=== PATIENT | female | born 1995 | race Two or more races ===

== ENCOUNTER 2018-07-10 10:45 | Inpatient (IN) | payer MEDICAID ==
[~2018-07-10] VITALS: Ht 154.9 cm; Wt 68.9 kg
[2018-07-10] MEDS ORDERED: LACT. RINGERS/OXYTOCIN 20UNITS 1,000 ML IV SCH ×2 (11:35→13:14)
[2018-07-10] MEDS ORDERED: LACTATED RINGER'S 1,000 ML IV SCH (11:35)
[2018-07-10] MEDS ORDERED: NALBUPHINE HCL 10 MG/1ml INJECTION IV PRN (11:45)
[2018-07-10] MEDS ORDERED: WITCH HAZEL-GLYCERIN PAD TOP PRN (11:45)
[2018-07-10] MEDS ORDERED: METHYLERGONOVINE MALEATE 0.2 MG/ML AMP IM PRN (11:45)
[2018-07-10] MEDS ORDERED: LIDOCAINE 2% (LOCAL ANESTH.) PF 5ml SDV ID ONE (11:45)
[2018-07-10] MEDS ORDERED: PHISODERM TOP SOLN 240ML BTL TOP PRN (11:45)
[2018-07-10] MEDS ORDERED: DERMOPLAST 60ML BOTTLE TOP PRN (11:45)
[2018-07-10] MEDS: LACTATED RINGER'S 1,000 ML IV SCH ×2 (12:15→16:15)
[2018-07-10 12:19] LABS: Basophils # (auto) 0 uL; Basophils % (auto) 0.4 % (0.0-2.0); Eosinophils # (auto) 0.1 uL; Eosinophils % (auto) 0.9 % (0.0-7.0); Hematocrit 29.8 % (36.0-46.0); Hemoglobin 9.9 g/dL (12.2-16.2); Lymphocytes % (auto) 13.2 % (10.0-50.0); Mean Corpuscular Hemoglobin 27.6 pg (28.0-32.0); Mean Corpuscular Hgb Conc. 33.3 g/dL (32.0-36.0); Mean Corpuscular Volume 82.8 fL (80.0-100.0); Monocytes # (auto) 0.4 uL; Monocytes % (auto) 5.7 % (0.0-12.0); Neutrophils # (auto) 5.9 uL; Neutrophils % (auto) 79.8 % (37.0-80.0); Nucleated Red Blood Cells % 0.1 %; Platelet Count (auto) 197 10^3/uL (140-450); Red Blood Cells 3.59 10^6/uL (4.0-5.20); White Blood Cell 7.4 10^3/uL (4.4-10.8)
[2018-07-10 12:25] LABS: Urine Bacteria NONE SEEN /hpf (None Seen); Urine Blood Negative /uL (Negative); Urine Specific Gravity 1.011 (1.001-1.035); Urine WBC 2 /hpf (0 - 5)
[2018-07-10 12:38] LABS: INR 0.87 (0.9-1.15); Prothrombin Time 9.4 sec (9.27-12.13)
[2018-07-10 12:41] LABS: Alcohol, Urine < 3.0 mg/dL (0-5); Amphetamine Screen, Urine NEGATIVE (NEGATIVE); Barbiturate Scree,Urine NEGATIVE (NEGATIVE); Benzodiazephine Screen, Urine NEGATIVE (NEGATIVE); Cannabinoid Screen, Urine NEGATIVE (NEGATIVE); Cocaine Screen, Urine NEGATIVE (NEGATIVE); Opiate Scree,Urine NEGATIVE (NEGATIVE); Phencyclidine Screen, Urine NEGATIVE (NEGATIVE)
[2018-07-10 12:42] LABS: Albumin 2.4 g/dL (3.4-5.0); BUN/Creatinine Ratio 11.8; Calcium 8.5 mg/dL (8.5-10.1); Potassium 3.9 mmol/L (3.5-5.1)
[2018-07-10 12:45] LABS: Bilirubin, Total 0.4 mg/dL (0.2-1.0); Total Protein 6.4 g/dL (6.4-8.2)
[2018-07-10] MEDS ORDERED: PREN-153 OR (12:45)
[2018-07-10] MEDS ORDERED: FERR18TA2 PO (12:45)
[2018-07-10] MEDS ORDERED: TERBUTALINE SULFATE 1 MG/ML 1ML VIAL SC ONE (13:15)
[2018-07-10] MEDS ORDERED: PROMETHAZINE HCL 25 MG/ML 1ML ONE (14:38)
[2018-07-10] MEDS ORDERED: LIDOCAINE 2% (LOCAL ANESTH.) PF 5ml SDV ONE (19:52)
[2018-07-10 23:00] VITALS: BP 122/65
[2018-07-10] MEDS: ceFAZolin 1GM/50ML 50 ML IV SCH (23:29)
[2018-07-10] MEDS: ACETAMINOPHEN 325 MG TAB PO PRN (23:48)
[2018-07-11] VITALS (7 sets, daily range): BP systolic 102–115; BP diastolic 63–70
[2018-07-11] MEDS: IBUPROFEN 600 MG TAB PO PRN ×3 (01:16→16:40)
[2018-07-11 05:06] LABS: RPR Non Reactive (Non Reactive)
[2018-07-11] MEDS: ceFAZolin 1GM/50ML 50 ML IV SCH ×4 (05:55→22:35)
[2018-07-11] MEDS: LACTATED RINGER'S 1,000 ML IV SCH (09:50)
[2018-07-11] MEDS ORDERED: DOCUSATE CALCIUM 240 MG CAP PO SCH (10:00)
[2018-07-11] MEDS: DOCUSATE SOD 100 MG CAP PO SCH (10:05)
[2018-07-11] MEDS ORDERED: TETANUS-DIPTH-ACEL PERTUSSIS 0.5ML SYRG IM ONE (13:45)
[2018-07-11] MEDS ORDERED: MEASLES, MUMPS & RUBELLA VAC(MMRII) 0.5ML SC ONE (13:45)
[2018-07-11] MEDS: ACETAMINOPHEN 325 MG TAB PO PRN (22:34)
[2018-07-12 03:30] VITALS: BP 110/64
[2018-07-12] MEDS ORDERED: LIDOCAINE 2% (LOCAL ANESTH.) PF 5ml SDV ONE (04:50)
[2018-07-12] MEDS: ceFAZolin 1GM/50ML 50 ML IV SCH (05:55)
[2018-07-12] MEDS: DOCUSATE SOD 100 MG CAP PO SCH (06:43)
[2018-07-12 06:45] VITALS: BP 114/74
[2018-07-12] MEDS: ACETAMINOPHEN 325 MG TAB PO PRN (08:49)
== END 2018-07-12 09:12 | disposition home or self-care (01) | DRG 560 ==
LOC: LDRP 10:45 → OBSVTOIN 11:25 → LDRP 07-11 00:51 → CENTRAL 07-11 22:18
PROVIDERS: ADMIT Obstetrics & Gynecology; ATTEND Obstetrics & Gynecology
PROC: 10D07Z6 Extraction of Products of Conception, Vacuum, Via Natural or Artificial Opening (ICD-10-PCS; principal; 2018-07-10)
PROC: 0W8NXZZ Division of Female Perineum, External Approach (ICD-10-PCS; 2018-07-10)
PROC: 0UQGXZZ Repair Vagina, External Approach (ICD-10-PCS; 2018-07-10)
DX: O70.0 First degree perineal laceration during delivery (principal); Z37.0 Single live birth; Z3A.39 39 weeks gestation of pregnancy
CPT/HCPCS: 36415; 51702; 59025; 59409; 80053; 80307; 81001; 85025; 85610; 85730; 86592; 86850; 86900; 86901; 87340; 90471; 90715; 96365; 96366; A6257; G0378; J0690; J2001; J2590

== ENCOUNTER 2021-01-19 11:02 | Emergency (ER) | payer MEDICAID ==
[~2021-01-19] VITALS: Ht 154.9 cm; Wt 48.5 kg
[~2021-01-19 11:02] MED LIST: FERR18TA2 PO; PREN1TAB71 OR
[2021-01-19 11:21] VITALS: BP 108/47
[2021-01-19 11:35] LABS: Urine Bacteria NONE SEEN /hpf (None Seen); Urine Blood 3+ /uL (Negative); Urine Mucus FEW (None Seen); Urine Specific Gravity 1.027 (1.001-1.035); Urine WBC 2 /hpf (0 - 5)
== END 2021-01-19 12:35 | disposition home or self-care (01) ==
LOC: ER 11:02
DX: O20.0 Threatened abortion (principal); Z3A.16 16 weeks gestation of pregnancy
CPT/HCPCS: 76805; 81001

== ENCOUNTER 2021-03-11 01:57 | Inpatient (IN) | payer MEDICAID ==
[~2021-03-11] VITALS: Ht 154.9 cm; Wt 56.8 kg
[2021-03-11] MEDS: TERBUTALINE SULFATE 1 MG/ML 1ML VIAL SC SCH ×3 (04:01→04:40)
[2021-03-11] MEDS: LACTATED RINGER'S 1,000 ML IV SCH ×3 (04:43→18:45)
[2021-03-11 04:55] LABS: Basophils # (auto) 0.1 10 ^3/uL (0-0.2); Basophils % (auto) 0.3 % (0.0-2.0); Eosinophils # (auto) 0 10 ^3/uL (0-0.8); Eosinophils % (auto) 0.2 % (0.0-7.0); Monocytes # (auto) 0.7 10 ^3/uL (0-1.3); Monocytes % (auto) 4.1 % (0.0-12.0); Red Blood Cells 3.07 10^6/uL (4.0-5.20)
[2021-03-11 04:58] LABS: Hematocrit 25.7 % (36.0-46.0); Hemoglobin 8.5 g/dL (12.2-16.2); Lymphocytes % (auto) 11.6 % (10.0-50.0); Mean Corpuscular Hemoglobin 27.6 pg (28.0-32.0); Mean Corpuscular Volume 83.6 fL (80.0-100.0); Neutrophils # (auto) 14.5 10 ^3/uL (1.6-8.6); Neutrophils % (auto) 83.8 % (37.0-80.0); Nucleated Red Blood Cells % 0.1 %; Platelet Count (auto) 247 10^3/uL (140-450); Red Cell Distribution Width 13.8 % (11.8-14.3); White Blood Cell 17.4 10^3/uL (4.4-10.8)
[2021-03-11] MEDS ORDERED: BETAMETHASONE ACET (6MG/ML) 5ML VIAL IM SCH (05:00)
[2021-03-11 05:11] LABS: INR 0.97 (0.9-1.15); Partial Thromboplastin Time 26.8 sec (23.0-31.2); Potassium 3.4 mmol/L (3.5-5.1)
[2021-03-11 05:15] LABS: Albumin 2.6 g/dL (3.4-5.0); BUN/Creatinine Ratio 17.1; Calcium 8.4 mg/dL (8.5-10.1)
[2021-03-11 05:17] LABS: Bilirubin, Total 0.3 mg/dL (0.2-1.0); Total Protein 6.2 g/dL (6.4-8.2)
[2021-03-11] MEDS ORDERED: BETAMETHASONE ACET (6MG/ML) 5ML VIAL ONE (05:17)
[2021-03-11] MEDS ORDERED: ACETAMINOPHEN 500 MG TAB PO ONE (05:45)
[2021-03-11] MEDS ORDERED: diphenhdrAMINE HCL 25 MG CAP PO PRN (05:45)
[2021-03-11] MEDS ORDERED: LORATADINE 10 MG TAB PO PRN (05:45)
[2021-03-11] MEDS ORDERED: LACT. RINGERS/OXYTOCIN 20UNITS 1,000 ML IV ONE (07:28)
[2021-03-11] MEDS ORDERED: PHISODERM TOP SOLN 240ML BTL TOP PRN (07:30)
[2021-03-11] MEDS ORDERED: WITCH HAZEL-GLYCERIN PAD TOP PRN (07:30)
[2021-03-11] MEDS ORDERED: DERMOPLAST 60ML BOTTLE TOP PRN (07:30)
[2021-03-11] MEDS ORDERED: LACT. RINGERS/OXYTOCIN 20UNITS 500 ML IV ONE ×2 (07:30→08:00)
[2021-03-11] MEDS ORDERED: IBUPROFEN 600 MG TAB PO PRN (08:00)
[2021-03-11 08:56] LABS: INR 0.98 (0.9-1.15); Partial Thromboplastin Time 25.2 sec (23.0-31.2)
[2021-03-11 09:32] LABS: Eosinophils # (auto) 0 10 ^3/uL (0-0.8); Mean Corpuscular Volume 84.4 fL (80.0-100.0)
[2021-03-11 09:33] LABS: Basophils # (auto) 0 10 ^3/uL (0-0.2); Basophils % (auto) 0.3 % (0.0-2.0); Hematocrit 24.3 % (36.0-46.0); Lymphocytes # (auto) 1.4 10 ^3/uL (0.4-5.4); Lymphocytes % (auto) 8.7 % (10.0-50.0); Mean Corpuscular Hemoglobin 27.8 pg (28.0-32.0); Mean Corpuscular Hgb Conc. 32.9 g/dL (32.0-36.0); Monocytes # (auto) 0.6 10 ^3/uL (0-1.3); Monocytes % (auto) 4.1 % (0.0-12.0); Neutrophils # (auto) 13.8 10 ^3/uL (1.6-8.6); Neutrophils % (auto) 86.9 % (37.0-80.0); Nucleated Red Blood Cells % 0.1 %; Platelet Count (auto) 234 10^3/uL (140-450); Red Blood Cells 2.87 10^6/uL (4.0-5.20); Red Cell Distribution Width 13.8 % (11.8-14.3); White Blood Cell 15.9 10^3/uL (4.4-10.8)
[2021-03-11 10:12] LABS: Alcohol, Urine < 3.0 mg/dL (0-10); Amphetamine Screen, Urine NEGATIVE (NEGATIVE); Barbiturate Scree,Urine NEGATIVE (NEGATIVE); Benzodiazephine Screen, Urine NEGATIVE (NEGATIVE); Cannabinoid Screen, Urine NEGATIVE (NEGATIVE); Cocaine Screen, Urine NEGATIVE (NEGATIVE); Opiate Scree,Urine NEGATIVE (NEGATIVE); Phencyclidine Screen, Urine NEGATIVE (NEGATIVE)
[2021-03-11 10:22] LABS: Urine Bacteria FEW /hpf (None Seen); Urine Blood 3+ /uL (Negative); Urine Specific Gravity 1.013 (1.001-1.035); Urine WBC 2198 /hpf (0 - 5)
[2021-03-11 12:15] VITALS: BP 98/57
[2021-03-11 12:42] VITALS: BP 98/57
[2021-03-11 13:00] VITALS: BP 90/57
[2021-03-11 16:55] VITALS: BP 82/52
[2021-03-11] MEDS: FERROUS SULFATE 325mg EC TAB PO SCH (18:13)
[2021-03-11 22:00] VITALS: BP 98/59
[2021-03-12] MEDS: LACTATED RINGER'S 1,000 ML IV SCH ×2 (04:00→11:00)
[2021-03-12 05:00] VITALS: BP 96/49
[2021-03-12] MEDS: FERROUS SULFATE 325mg EC TAB PO SCH (08:41)
[2021-03-12 09:00] VITALS: BP 92/56
[2021-03-12 13:00] VITALS: BP 102/58
== END 2021-03-12 15:15 | disposition left against medical advice (07) | DRG 560 ==
LOC: ER 01:57 → OBSVTOIN 02:10 → LDRP 02:10 → OBSVTOIN 04:50 → INTOOBSV 04:50 → LDRP 04:51 → EAST 12:10
PROVIDERS: ADMIT Specialist; ATTEND Specialist
PROC: 10E0XZZ Delivery of Products of Conception, External Approach (ICD-10-PCS; principal; 2021-03-11)
DX: O36.4XX0 Maternal care for intrauterine death, not applicable or unspecified (principal); O60.13X0 Preterm labor second trimester with preterm delivery third trimester, not applicable or unspecified; O32.1XX0 Maternal care for breech presentation, not applicable or unspecified; Z37.1 Single stillbirth; Z53.29 Procedure and treatment not carried out because of patient's decision for other reasons; Z20.822 Contact with and (suspected) exposure to COVID-19; Z3A.22 22 weeks gestation of pregnancy
CPT/HCPCS: 36415; 59025; 59409; 76805; 80053; 80307; 81001; 81002; 85025; 85384; 85610; 85730; 86850; 86900; 86901; 86920; 87426; 96360; 96361; 96365; 96372; G0378; J2590

== ENCOUNTER 2023-12-17 08:48 | Emergency (ER) | payer MEDICAID ==
[~2023-12-17] VITALS: Ht 154.9 cm; Wt 60.2 kg
[2023-12-17 09:02] VITALS: BP 117/66; PULSE 100; RESP 16; TEMP 98.1; O2SAT 96
[2023-12-17 09:34] LABS: Urine Bacteria FEW /hpf (None Seen); Urine Blood Negative /uL (Negative); Urine Clarity Clear (Clear); Urine Mucus FEW (None Seen); Urine Protein, UAD Negative (Negative); Urine Specific Gravity 1.008 (1.001-1.035); Urine Urobilinogen Normal (Negative); Urine WBC 6 /hpf (0 - 5); Urine pH 6.5 (5.0-8.0)
[2023-12-17 09:35] LABS: Urine Color Straw (Yellow)
[2023-12-17] MEDS ORDERED: FLUT1SPR5 (09:46)
[2023-12-17] MEDS ORDERED: NITR-87 PO (09:46)
[2023-12-17] MEDS ORDERED: AZEL0.1S (09:46)
== END 2023-12-17 09:50 | disposition home or self-care (01) ==
LOC: ER 08:48
DX: O99.511 Diseases of the respiratory system complicating pregnancy, first trimester (principal); O23.41 Unspecified infection of urinary tract in pregnancy, first trimester; J06.9 Acute upper respiratory infection, unspecified; Z3A.01 Less than 8 weeks gestation of pregnancy; Z79.899 Other long term (current) drug therapy
CPT/HCPCS: 81001; 87086

== ENCOUNTER 2024-05-19 08:04 | Emergency (ER) | payer MEDICAID ==
[~2024-05-19] VITALS: Ht 154.9 cm; Wt 60.5 kg
[~2024-05-19 08:04] MED LIST changes: +AZEL0.1S; +FLUT1SPR5; +NITR-87 PO
[2024-05-19 08:35] LABS: Urine Bacteria FEW /hpf (None Seen); Urine Blood 3+ /uL (Negative); Urine Clarity Turbid (Clear); Urine Mucus FEW (None Seen); Urine Protein, UAD TRACE (Negative); Urine Specific Gravity 1.014 (1.001-1.035); Urine Urobilinogen Normal (Negative); Urine WBC 44 /hpf (0 - 5)
[2024-05-19] MEDS: SODIUM CHLORIDE 0.9% 1,000 ML IVB ONE (08:43)
[2024-05-19] MEDS: PANTOPRAZOLE 40 MG/10 ML VIAL INJ IV ONE (08:43)
[2024-05-19] MEDS: ONDANSETRON HCL 4 MG/2 ML VIAL IV ONE (08:43)
[2024-05-19 08:45] LABS: Amphetamine Screen, Urine Neg (NEGATIVE); Barbiturate Scree,Urine Neg (NEGATIVE); Urine Color STRAW (Yellow)
[2024-05-19 08:46] LABS: Benzodiazephine Screen, Urine Neg (NEGATIVE); Cannabinoid Screen, Urine Neg (NEGATIVE); Cocaine Screen, Urine Neg (NEGATIVE); Opiate Scree,Urine Neg (NEGATIVE); Phencyclidine Screen, Urine Neg (NEGATIVE)
[2024-05-19] MEDS: cefTRIAXone 1GM/50ML D5W 50 ML IV ONE (09:00)
[2024-05-19 09:05] VITALS: PULSE 71; RESP 18; O2SAT 99
[2024-05-19 09:06] LABS: Basophils # (auto) 0 10 ^3/uL (0-0.2); Basophils % (auto) 0.3 % (0.0-2.0); Eosinophils # (auto) 0 10 ^3/uL (0-0.8); Eosinophils % (auto) 0.1 % (0.0-7.0); Hematocrit 42.5 % (36.0-46.0); Hemoglobin 14.4 g/dL (12.2-16.2); Lymphocytes # (auto) 0.7 10 ^3/uL (0.4-5.4); Lymphocytes % (auto) 8.5 % (10.0-50.0); Mean Corpuscular Hemoglobin 31.8 pg (28.0-32.0); Mean Corpuscular Volume 93.7 fL (80.0-100.0); Monocytes # (auto) 0.4 10 ^3/uL (0-1.3); Monocytes % (auto) 4.9 % (0.0-12.0); Neutrophils # (auto) 7.3 10 ^3/uL (1.6-8.6); Neutrophils % (auto) 86.2 % (37.0-80.0); Nucleated Red Blood Cells % 0.1 %; Red Blood Cells 4.54 10^6/uL (4.0-5.20); White Blood Cell 8.4 10^3/uL (4.4-10.8)
[2024-05-19 09:20] LABS: Alanine Aminotransferase 17 U/L (7-40); Albumin 4.4 g/dL (3.2-4.8); Alkaline Phosphatase 84 U/L (46-116); Anion Gap 7 (5-15); Aspartate Aminotransferase 14 U/L (13-40); Bilirubin, Total 0.9 mg/dL (0.2-1.0); Calcium 9.4 mg/dL (8.7-10.4); Carbon Dioxide 23 mmol/L (20-30); Chloride 108 mmol/L (98-107); Glucose 108 mg/dL (74-106); Lipase 32 U/L (12-53); Potassium 3.3 mmol/L (3.5-5.1); Sodium 138 mmol/L (136-145); Total Protein 7.3 g/dL (5.7-8.2)
[2024-05-19 09:21] LABS: Blood Urea Nitrogen < 5 mg/dL (9-23)
[2024-05-19] MEDS ORDERED: CIPR-173 PO (09:28)
[2024-05-19] MEDS ORDERED: ZOFR4T PO (09:28)
[2024-05-19 09:47] VITALS: BP 110/74; PULSE 90; RESP 17; TEMP 98.4; O2SAT 98
== END 2024-05-19 09:48 | disposition home or self-care (01) ==
LOC: ER 08:04
DX: K29.70 Gastritis, unspecified, without bleeding (principal); N39.0 Urinary tract infection, site not specified; R10.2 Pelvic and perineal pain; Z79.899 Other long term (current) drug therapy
CPT/HCPCS: 36415; 76705; 80053; 80307; 81001; 83690; 84702; 85025; 96365; 96375; 99285; J0696; J2405; J7030